=== PATIENT | male | born 1995 | race Caucasian/White ===

== ENCOUNTER 2016-04-21 11:15 | Emergency (ER) | payer SELFPAY ==
[~2016-04-21] VITALS: Ht 170.2 cm; Wt 68.6 kg
[~2016-04-21 11:15] MED LIST: ACYCLOVIR800 MG PO; ANTIVERT25 MG PO; AUGMENTIN875 MG PO; BENTYL20 MG PO; CEFDINIR300 MG PO; CONCERTA36 MG PO; FLEXERIL5 MG PO; LOMOTIL TABLET1 EACH PO; MOTRIN IB200 MG PO; MOTRIN800 MG PO; NORCO 10/3251 TABLET PO; PERCOCET 5/31 TABLET PO; ULTRAM50 MG PO; ZITHROMAX500 MG PO; ZOFRAN ODT4 MG PO; no home
[2016-04-21] MEDS ORDERED: MOTRIN800 MG PO (13:48)
[2016-04-21 14:32] VITALS: BP 134/76
== END 2016-04-21 14:48 | disposition home or self-care (01) ==
LOC: EME 11:15
DX: S09.90XA Unspecified injury of head, initial encounter (principal); S01.81XA Laceration without foreign body of other part of head, initial encounter; W22.8XXA Striking against or struck by other objects, initial encounter; Y99.0 Civilian activity done for income or pay; Z23 Encounter for immunization; F17.200 Nicotine dependence, unspecified, uncomplicated
CPT/HCPCS: 70450; 99281; 99284; J7030

== ENCOUNTER 2016-05-16 20:00 | Emergency (ER) | payer SELFPAY ==
[~2016-05-16] VITALS: Ht 170.2 cm; Wt 67.9 kg
[2016-05-16 20:47] LABS: MCH 28.8 PG (29.0-34.0); MCHC 33.3 G/DL (30.0-36.0); MCV 86.7 FL (86-99); MEAN PLAT.VOLUME 9.7 uM^3 (9.0-12.4); PLATELET COUNT 471 K/uL (156-360); RBC DIS.WIDTH-CV 12.4 % (11.8-14.6); RBC DIS.WIDTH-SD 39.1 % (39-53); RED BLOOD COUNT 4.96 M/uL (4.00-5.50); WHITE BLOOD COUNT 13.8 K/uL (4.1-10.2)
[2016-05-16 20:53] LABS: ADD MIUA? NO; BILIRUBIN NEGATIVE; BLOOD NEGATIVE; COLOR STRAW ((YELLOW)); GLUCOSE (STRIP) NEGATIVE; KETONES NEGATIVE; LEUKOCYTES NEGATIVE; NITRITE NEGATIVE; PROTEIN (STRIP) NEGATIVE; SPECIFIC GRAVITY 1.005 (1.000-1.030); UROBILINOGEN 0.2 MG/DL (0.2-1.0)
[2016-05-16 20:57] LABS: CHLORIDE 101 mEq/L (99-109); SODIUM 139 mEq/L (136-147)
[2016-05-16 20:58] LABS: GLUCOSE 94 mg/dL (70-99)
[2016-05-16 21:00] LABS: ANION GAP 10 MEQ/L (2-14)
[2016-05-16 21:02] LABS: GFR ESTIMATE (CALCULATED) > 59 mL/min/
[2016-05-16 21:03] LABS: UREA NITROGEN (BUN) 7 mg/dL (9-23)
[2016-05-16] MEDS ORDERED: ZOFRAN ODT4 MG PO (21:13)
[2016-05-16 21:22] VITALS: BP 117/85
== END 2016-05-16 21:23 | disposition home or self-care (01) ==
LOC: EME 20:00
PROVIDERS: Physician Assistant
DX: B34.9 Viral infection, unspecified (principal); R11.2 Nausea with vomiting, unspecified; Z87.891 Personal history of nicotine dependence
CPT/HCPCS: 80048; 81003; 85027; 99281; 99284

== ENCOUNTER 2016-07-19 01:21 | Emergency (ER) | payer SELFPAY ==
[~2016-07-19] VITALS: Ht 170.2 cm; Wt 68.1 kg
[2016-07-19 01:40] VITALS: BP 113/69
== END 2016-07-19 01:50 ==
LOC: EME 01:21
DX: Z02.89 Encounter for other administrative examinations (principal); Z87.891 Personal history of nicotine dependence
CPT/HCPCS: 99281; 99284

== ENCOUNTER 2016-07-23 20:39 | Emergency (ER) | payer SELFPAY ==
[~2016-07-23] VITALS: Ht 170.2 cm; Wt 63.2 kg
[2016-07-23 20:51] VITALS: BP 113/64
== END 2016-07-23 21:18 | disposition home or self-care (01) ==
LOC: EME 20:39
DX: F19.10 Other psychoactive substance abuse, uncomplicated (principal); Z87.891 Personal history of nicotine dependence
CPT/HCPCS: 99281; 99284

== ENCOUNTER 2016-08-01 17:19 | Emergency (ER) | payer SELFPAY ==
[~2016-08-01] VITALS: Ht 170.2 cm; Wt 58.9 kg
[2016-08-01 17:25] VITALS: BP 106/52
== END 2016-08-01 17:37 | disposition left against medical advice (07) ==
LOC: EME 17:19
DX: F16.10 Hallucinogen abuse, uncomplicated (principal); Z53.21 Procedure and treatment not carried out due to patient leaving prior to being seen by health care provider; F17.200 Nicotine dependence, unspecified, uncomplicated; Z88.1 Allergy status to other antibiotic agents; Z88.0 Allergy status to penicillin